=== PATIENT | female | born 1985 | race African-American/Black ===

== ENCOUNTER 2017-04-16 04:27 | Inpatient (IN) ==
[2017-04-16] MEDS ORDERED: MEPERIDINE 50 MG/1 ML VIAL IV PRN (04:38)
[2017-04-16] MEDS ORDERED: ONDANSETRON 4 MG/2 ML VIAL IV PRN (04:38)
[2017-04-16] MEDS ORDERED: ACETAMINOPHEN 325 MG TABLET PO PRN (04:38)
[2017-04-16] MEDS ORDERED: BUTORPHANOL 2 MG/ML VIAL IV PRN (04:38)
[2017-04-16] MEDS ORDERED: AMPICILLIN INJ 2,000 MG in SODIUM CHLORIDE 0.9% 100 ML IV ONE (04:39)
[2017-04-16] MEDS: LACTATED RINGERS 1,000 ML IV SCH ×2 (05:00→07:25)
[2017-04-16] MEDS: OXYTOCIN/LR 20 UNIT/1,000 ML BAG IV SCH ×2 (05:15→19:08)
[2017-04-16 05:44] LABS: Basophils % 0.2 % (0.0-0.8); Eosinophils # 0.2 10*3/uL (0.0-0.87); Eosinophils % 1.1 % (0.00-10.9); Hematocrit 38.2 VOL% (35.7-47.0); Hemoglobin 12.9 GM/DL (12.0-16.0); Immature Granulocytes % 0.7 %; Immature Granulocytes Absolute 0.12 #; Lymphocytes # 5.6 10*3/uL (1.4-4.0); Lymphocytes % 33.9 % (21.3-54.2); Mean Corpuscular HGB Conc 33.8 GM/DL (32-36); Mean Corpuscular Hemoglobin 30 PG (27-34); Mean Corpuscular Volume 88.6 FL (87-102); Mean Platelet Volume 11.8 FL (9.6-12.0); Monocytes # 1.5 10*3/uL (0.11-0.8); Monocytes % 9.1 % (1.7-12.7); Neutrophils # 9.1 10*3/uL (1.4-7.4); Platelet Count 230 T/CUMM (130-400); Red Blood Count 4.31 MC/CUMM (3.8-5.5); Red Cell Distribution Width 14.3 % (9.3-17.3); White Blood Count 16.6 T/CUMM (4-12)
[2017-04-16 06:12] LABS: Albumin 2.7 G/DL (3.4-5.0); Bilirubin,Total 0.7 MG/DL (0.2-1.0); Calcium 8.9 MG/DL (8.5-10.1); Osmolality,Calculated 276.4 MOS/KG (273-304); Potassium 3.4 MMOL/L (3.5-5.1); Total Protein 6.6 G/DL (6.4-8.3)
[2017-04-16] MEDS ORDERED: fentaNYL 2 MCG/ROPIV 0.2% EPID 150 ML EPIDURAL SCH (07:34)
[2017-04-16] MEDS ORDERED: CITRIC ACID/SODIUM CITRATE 30 ML UDCUP PO ONE (07:34)
[2017-04-16] MEDS ORDERED: LACTATED RINGERS 1,000 ML IV ONE (07:34)
[2017-04-16] MEDS ORDERED: ONDANSETRON 4 MG/2 ML VIAL IV ONE (07:34)
[2017-04-16] MEDS ORDERED: diphenhydrAMINE 50 MG/1 ML VIAL IV PRN ×2 (07:34)
[2017-04-16] MEDS ORDERED: FAMOTIDINE 20 MG/2 ML VIAL IV ONE (07:34)
[2017-04-16] MEDS ORDERED: PROMETHAZINE 25 MG/1 ML VIAL IM ONE (07:34)
[2017-04-16] MEDS ORDERED: ePHEDrine 50 MG/ML AMP IV PRN (07:34)
[2017-04-16] MEDS ORDERED: hydrOXYzine HCL 25 MG/1 ML VIAL IM PRN (07:34)
[2017-04-16 08:12] LABS: INR 0.9; PT Patient Result 9.6 SECS; Partial Thromboplastin Time 28.1 SECS (0-40)
[2017-04-16] MEDS: AMPICILLIN INJ 1,000 MG in SODIUM CHLORIDE 0.9% 100 ML IV SCH ×3 (09:23→16:58)
--- NOTE | 2017-04-16 09:32 | OB/GYN History & Physical ---
History of Present Illness Chief complaint: Here for induction of labor History of present illness: Patient is a 31-year-old [] Para 2012 that presented induction of labor at 39 weeks. She is 39 weeks gestation today. She receives care at [facility] with Jaleesa Luz CNM, [facility]. She had a total of 12 visits and 3 ultrasounds. During the course of her she has vitamin D deficiency in which she was treated with 5000 units of vitamin D daily, group beta strep positive, smoker, nausea and vomiting, obesity, bacterial vaginosis that was treated with Flagyl. Her records are current, reviewed, and up to date. 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 7 oz., patient revealed today that she had an embolus after delivery of her last baby at 39 weeks in which the embolus and the blood clots in her back were developed 3 weeks after she delivered Genetic Hx: Noncontributory Social Hx: Single, smoked earlier in the Family Hx: She had an uncle with colon cancer, cerebral palsy with the sister, diabetes, high blood pressure, renal disease Medications: vitamins, vitamin D Labs: Blood type and RH O+, antibody screen negative, Rubella nonreactive, HIV negative, HBsAG negative, GC negative, Chlamydia negative, Diabetic Screen 125, GBS positive, Other urine drug screen positive for cannabinoids Home Medications Medication Instructions Recorded Confirmed Type Multivitamin () [ 1 tablet PO DAILY 04/01/17 04/16/17 History Vitamin] Allergies Allergy/AdvReac Type Severity Reaction Status Date / Time No Known Allergies Allergy Verified 08/15/16 08:13 12 point system: reviewed and no additional remarkable complaints except as stated Medical,Surgical,& Family Hx - Medical History Psychological: No history of: Anxiety Disorders, ADHD, Behavior Problems, Bipolar Disorder, Depression, Previous Suicide Attempt, Psychiatric/Substance Abuse Tx, Schizophrenia, Violent Behavior, Psychiatric Problems Respiratory: History of: Pulmonary Embolism (2014) No history of: Asthma, Bronchitis, COPD, Intubation, Obstructive Sleep Apnea , Pulmonary Hypertension, Pneumonia, Lung Cancer, Respiratory Problems Hematology: History of: Clotting Problems (see above comment), Blood Disorders ( hx of blood clots in lung 2015) No history of: Anemia, Bleeding Problems, Sickle Cell Disease, Hematologic Cancer Reproductive: History of: Sexually Transmitted Disorders (Gonorrhea) No history of: Ectopic , Complication - Surgical History Thoracic Surgeries: Patient denies;: Organ Transplant, Lobectomy Neurologic Surgeries: Patient denies: Neurologic Surgery Abdominal Surgeries: Patient denies: Abdominal Surgery, Appendectomy Reproductive Surgeries: Surgical HX of;: Dilation and Curettage, Gynecologic Surgery Patient denies;: Breast Surgery, Section, Hysterectomy, Tubal Ligation - Family History Family History: Reports;: Family Cancer (MATERNAL SIDE), Family Diabetes ( MATERNAL SIDE), Family Heart Disease (MATERNAL SIDE), Family Hypertension ( MATERNAL SIDE) Denies;: Family Anesthesia Reaction, Family Stroke - Social History Smoking Status: Current every day smoker Frequency of Alcohol Use: None Type of Drug Use: None Marital Status: Single Lives With:: Children Functional capacity: independent ambulation 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 - Constitutional Vitals: Vital Signs Temp Pulse Resp BP 04/16/17 07:42 97.3 F L 90 18 132/65 04/16/17 04:34 97.4 F L 127 H 20 131/83 General appearance: no acute distress - Antepartum / Post Antepartum Exam Cervix - Dilatation: 2 cm Effacement: 60% Station: -2 Rupture: Artificial rupture of membranes with any clear fluid noted IUPC inserted Presentation: Vertex Heart Rate: 120s with spontaneous acceleration, no decelerations noted, category 1 FHR [place]: Every 3 minutes, 50-60 seconds, mild Breast: bilateral: normal Abdomen obstetrics: Present: bowel sounds normal Vagina: Present: normal moisture Uterus exam: Present: enlarged (Gravid, soft, estimated weight 8-8-1/2 pounds) Anus/Rectum: Present: normal perianal skin - Head Head exam: Present: normal inspection - Eye Eye exam: Present: EOMI - ENT ENT exam: Present: normal exam - Neck Neck exam: Present: normal inspection - Respiratory Respiratory exam: Present: clear to auscultation bilaterally - Breast Breasts: as per HPI - Cardiovascular Cardiovascular exam: Present: regular rate and rhythm - GI/Abdominal GI/Abdominal exam: Present: normal bowel sounds - Extremities Exam Extremities exam: Present: normal inspection, normal capillary refill, full ROM - Back Exam Back exam: Present: normal inspection - Neurological Exam Neurological exam: Present: alert, oriented X3, normal gait - Psychiatric Psychiatric exam: Present: normal affect, normal mood - Skin Skin exam: Present: normal color, warm, dry Assessment and Plan (1) History of pulmonary embolus (PE) Status: Acute Assessment and plan: Discuss plan with Dr. Nolasco-recommended start Lovenox immediately after delivery Current Visit: Yes (2) Smoker Status: Acute Current Visit: Yes (3) History of marijuana use Status: Acute Current Visit: Yes (4) Group beta Strep positive Status: Acute Assessment and plan: Start ampicillin 2 g initially then 1 g every 4 hours until delivery Current Visit: Yes (5) Term Status: Acute Current Visit: No (6) History of vitamin D deficiency Status: Acute Current Visit: Yes Results - Labs CBC & BMP: 04/16/17 05:07 04/16/17 05:07 Labs: Laboratory Results - last 72 hr 04/16/17 04/16/17 04/16/17 05:07 05:07 05:07 WBC 16.6 H RBC 4.31 Hgb 12.9 Hct 38.2 MCV 88.6 MCH 30 MCHC 33.8 RDW 14.3 Plt Count 230 MPV 11.8 Neut % (Auto) 55.0 Lymph % (Auto) 33.9 [place] % (Auto) 9.1 Eos % (Auto) 1.1 Baso % (Auto) 0.2 Neut # (Auto) 9.1 H Lymph # (Auto) 5.6 H [place] # (Auto) 1.5 H Eos # (Auto) 0.2 Baso # (Auto) 0.0 Immature Gran % 0.7 Nucleated RBC % 0.0 Immature Gran # 0.12 Nucleated RBCs # 0.00 INR PT Patient/Control Mix Fibrinogen Circ Anticoag PTT Sodium 140 Potassium 3.4 L Chloride 105 Carbon Dioxide 23 Anion Gap 15.4 H BUN 6 L Creatinine 0.50 L GFR Calculation 206 BUN/Creatinine Ratio 12.00 Glucose 106 Calculated Osmolality 276.4 Uric Acid Calcium 8.9 Total Bilirubin 0.70 AST 9 ALT 13 Alkaline Phosphatase 159 H Total Protein 6.6 Albumin 2.7 L Globulin 3.9 H Albumin/Globulin Ratio 0.6 L Blood Type O POSITIVE Antibody Screen Negative 04/16/17 04/16/17 05:07 07:30 WBC RBC Hgb Hct MCV MCH MCHC RDW Plt Count MPV Neut % (Auto) Lymph % (Auto) [place] % (Auto) Eos % (Auto) Baso % (Auto) Neut # (Auto) Lymph # (Auto) [place] # (Auto) Eos # (Auto) Baso # (Auto) Immature Gran % Nucleated RBC % Immature Gran # Nucleated RBCs # INR 0.9 PT Patient/Control Mix 9.6 Fibrinogen 341 Circ Anticoag PTT 28.1 Sodium Potassium Chloride Carbon Dioxide Anion Gap BUN Creatinine GFR Calculation BUN/Creatinine Ratio Glucose Calculated Osmolality Uric Acid 2.9 Calcium Total Bilirubin AST ALT Alkaline Phosphatase Total Protein Albumin Globulin Albumin/Globulin Ratio Blood Type Antibody Screen
[2017-04-16] MEDS ORDERED: BUPIVACAINE 0.25% 50 ML VIAL ONE (11:26)
--- NOTE | 2017-04-16 13:43 | OB/GYN Progress Note ---
Assessment and Plan (1) History of pulmonary embolus (PE) Status: Acute Assessment and plan: Discuss plan with Dr. 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 Denies any other problems presently. O: FHTs @ 120s with spontaneous variability, no decelerations noted UCs every 2-3 min/ 50 sec/50-70 mmHg with resting tone @ 10 mmHg SVE 4 cm/80%/0 station Pitocin @ 16 mu/min A: IUP @ 39.0 wks, pitocin induction of labor, category I FHR tracing, H/O postpatum pulmonary embolis P: Continue with pitocin induction Reposition for comfort Questions answered to desired level of satisfaction Start Lovenox post delivery per Dr. 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
[2017-04-16 14:20] LABS: Apearance,Urine CLEAR (Clear); Bacteria,Urine Occasional /HPF (Few); Bilirubin,Urine Negative (Negative); Blood, Urine Negative (Negative); Glucose,Urine (UA) Negative (Negative); Ketones,Urine Negative (Negative); Mucus,Urine Few /LPF (Occasional); Nitrite,Urine Negative (Negative); Protein,Urine 30 MG/DL; RBC,Urine 3 /HPF (0-4); Squamous Epithelial Cell,Urine Occasional /HPF (0-10); Urine Color Yellow (Yellow); Urine Specific Gravity 1.032 (1.001-1.035); Urine Urobilinogen < 2.0 EU/DL (0.2-1.0); WBC,Urine 2 /HPF (0-6)
[2017-04-16] MEDS: ENOXAPARIN 30 MG/0.3 ML SYRINGE SUBCUT SCH (18:03)
--- NOTE | 2017-04-16 18:09 | Operative Note ---
Date of procedure: 04/16/17 Pre-op diagnosis: IUP at 39 weeks, induction of labor, history of pulmonary embolus Post-op diagnosis: other () Procedure: Patient received lithotomy position, completely dilated and +2-+3 station. Patient was draped and prepped. At 1744, head delivered in DEREK position, nuchal cord 1 noted and easily slipped over baby's head. Anterior then posterior shoulders were delivered easily without difficulty. delivered in usual fashion and secured. Mouth and nose bulb suctioned. Cord double clamped and cut by female significant other at the bedside. Mouth and nose bulb suctioned, dried with good tone and vigorous cry noted. taken to radiant warmer and attended by nursery RN. At 1753, spontaneous delivery of placenta via Diana position, with 3 vessel cord noted, normal cord insertion, with moderate calcifications. Hemostasis maintained with fundal massage and Pitocin 20 units in 1000 cc of lactated Ringer's. Perineum inspected with no lacerations noted, intact. Male with Apgars 8 and 9 weighing 8 pounds and 5 ounces at 3775 grams. Mother and baby stable. Mother desires to bottle feed. Anesthesia: epidural Surgeon / Physician: Jaleesa Luz Estimated blood loss: minimal (100 cc) Specimens: other (Placenta to pathology secondary to history of smoking) Condition: stable Disposition: floor Results - Labs CBC & BMP: 04/16/17 05:07 04/16/17 05:07 Discharge Plan - Discharge Medications No Action Multivitamin () [ Vitamin] 1 tablet PO DAILY - Follow Up or Referral - Forms/Instructions
[2017-04-16] MEDS ORDERED: BISACODYL 10 MG SUPP RECTAL PRN (18:11)
[2017-04-16] MEDS ORDERED: DIPH/TET/ACEL PERT BOOSTER VACCINE 0.5 ML VIAL IM ONE (18:11)
[2017-04-16] MEDS ORDERED: BENZOCAINE 20%/MENTHOL 0.5% SPRAY 56 GM CAN TOP PRN (18:11)
[2017-04-16] MEDS ORDERED: HYDROCORTISONE 2.5% RECTAL CREAM 30 GM TUBE TOP PRN (18:11)
[2017-04-16] MEDS ORDERED: oxyCODONE/ACETAMINOPHEN 5-325 MG TABLET PO PRN (18:11)
[2017-04-16] MEDS ORDERED: MEASLES/MUMPS/RUBELLA VACCINE 0.5 ML VIAL SUBCUT ONE (18:11)
[2017-04-16] MEDS ORDERED: WITCH HAZEL PADS 100/JAR TOP PRN (18:11)
[2017-04-16] MEDS ORDERED: LANOLIN 50% CREAM 0.3 OZ TUBE TOP PRN (18:11)
[2017-04-16] MEDS ORDERED: RHO(D) IMMUNE GLOBULIN 300 MCG SYRINGE IM ONE (20:00)
[2017-04-16] MEDS: DOCUSATE SODIUM 100 MG CAPSULE PO SCH (21:29)
[2017-04-16] MEDS: FERROUS SULFATE 325 MG TABLET PO SCH (21:29)
[2017-04-16] MEDS: oxyCODONE/ACETAMINOPHEN 5-325 MG TABLET PO PRN (21:45)
[2017-04-17] MEDS: IBUPROFEN 800 MG TABLET PO PRN (05:33)
[2017-04-17] MEDS: ENOXAPARIN 30 MG/0.3 ML SYRINGE SUBCUT SCH ×2 (06:20→18:00)
[2017-04-17 06:23] LABS: Basophils % 0.2 % (0.0-0.8); Eosinophils # 0.2 10*3/uL (0.0-0.87); Eosinophils % 1.1 % (0.00-10.9); Hematocrit 32.8 VOL% (35.7-47.0); Hemoglobin 11.2 GM/DL (12.0-16.0); Immature Granulocytes % 0.6 %; Immature Granulocytes Absolute 0.09 #; Lymphocytes # 4.3 10*3/uL (1.4-4.0); Lymphocytes % 30.2 % (21.3-54.2); Mean Corpuscular HGB Conc 34.1 GM/DL (32-36); Mean Corpuscular Hemoglobin 30 PG (27-34); Mean Corpuscular Volume 87.9 FL (87-102); Mean Platelet Volume 11.7 FL (9.6-12.0); Monocytes # 1.8 10*3/uL (0.11-0.8); Monocytes % 12.2 % (1.7-12.7); Neutrophils % 55.7 % (38.7-73.9); Platelet Count 194 T/CUMM (130-400); Red Blood Count 3.73 MC/CUMM (3.8-5.5); Red Cell Distribution Width 14.3 % (9.3-17.3); White Blood Count 14.4 T/CUMM (4-12)
[2017-04-17] MEDS: FERROUS SULFATE 325 MG TABLET PO SCH ×3 (08:41→22:04)
[2017-04-17] MEDS: oxyCODONE/ACETAMINOPHEN 5-325 MG TABLET PO PRN (08:42)
[2017-04-17] MEDS: DOCUSATE SODIUM 100 MG CAPSULE PO SCH ×2 (08:43→22:04)
--- NOTE | 2017-04-17 09:03 | Discharge Summary ---
Hospital Course - Hospital Course Hospital Course: Patient is a 31-year-old now 4 para 3013 that presented for induction of labor at 39 weeks gestation. Labor progressed under an epidural anesthetic utilizing Pitocin induction to deliver an 8 lbs. 5 oz. male with Apgars 8 and 9. Perineum was intact. Secondary to a history of pulmonary embolus and blood clots 3 weeks after her last baby, she was started on Lovenox twice daily. She is being discharged home tomorrow if stable. Patient was instructed to continue Lovenox twice daily for 6 weeks . She is to follow-up with me in 2 weeks. Questions were answered to her desired level satisfaction and Dr. Nolasco agrees with plan of care. Diagnosis - Discharge Diagnosis (1) History of pulmonary embolus (PE) Status: Acute (2) Smoker Status: Acute (3) History of marijuana use Status: Acute (4) Group beta Strep positive Status: Resolved (5) Term Status: Resolved (6) History of vitamin D deficiency Status: Acute (7) (normal spontaneous vaginal delivery) Status: Acute Discharge Plan - Discharge Data Disposition: Disch To Home/Self Care Condition at Discharge: Stable Discharge Diet: advance to your usual diet Activity: resume usual activities as tolerated Hygiene: may shower Weight Bearing at Discharge: full weight bearing Driving: not for (2 week) Contact your physician if you experience:: fever over 101, Difficulty voiding, Redness or swelling, Nausea/Vomiting, Shortness of breath, Bleeding, pain uncontrolled by pain medications - Discharge Medications New Ferrous Sulfate Tab [Feosol Original Tab] 325 mg PO DAILY #30 tablet Ibuprofen Tab [Motrin Tab] 800 mg PO Q8H PRN #90 tablet PRN Reason: Pain Moderate (4-7) Enoxaparin [Lovenox] 30 mg SUBCUT Q24H #30 syringe No Action Multivitamin () [ Vitamin] 1 tablet PO DAILY - Follow Up or Referral Follow Up: Jaleesa Luz CFNP [Advanced Practice Nurse] - 2 Weeks - Forms/Instructions Exam - Constitutional Vitals: Period Temp Pulse Resp BP Sys/Gonzalez Pulse Ox Last 24 Hr 97.0 F-98.4 F 76-105 18-20 106-142/53-78 97-100 General appearance: no acute distress - Head Head exam: Present: normal inspection - Eye Pupils: Present: normal accommodation - ENT ENT exam: Present: normal exam - Neck Neck exam: Present: normal inspection - Respiratory Respiratory exam: Present: clear to auscultation bilaterally - Cardiovascular Cardiovascular exam: Present: regular rate and rhythm - GI/Abdominal GI/Abdominal exam: Present: normal bowel sounds, other (Uterus firm, midline, 2 fingerbreadths below the umbilicus. Scant rubra noted on pad) - Extremities Exam Extremities exam: Present: normal inspection, normal capillary refill, full ROM - Back Exam Back exam: Present: normal inspection - Neurological Exam Neurological exam: Present: alert, oriented X3, normal gait - Psychiatric Psychiatric exam: Present: normal affect, normal mood - Skin Skin exam: Present: normal color, warm, dry Discharge Results Procedures and tests throughout hospitalization: Laboratory Results - last 72 hr 04/16/17 04/16/17 04/16/17 05:07 05:07 05:07 WBC 16.6 H RBC 4.31 Hgb 12.9 Hct 38.2 MCV 88.6 MCH 30 MCHC 33.8 RDW 14.3 Plt Count 230 MPV 11.8 Neut % (Auto) 55.0 Lymph % (Auto) 33.9 [place] % (Auto) 9.1 Eos % (Auto) 1.1 Baso % (Auto) 0.2 Neut # (Auto) 9.1 H Lymph # (Auto) 5.6 H [place] # (Auto) 1.5 H Eos # (Auto) 0.2 Baso # (Auto) 0.0 Immature Gran % 0.7 Nucleated RBC % 0.0 Immature Gran # 0.12 Nucleated RBCs # 0.00 Immature Plt Fraction INR PT Patient/Control Mix Fibrinogen Circ Anticoag PTT Sodium 140 Potassium 3.4 L Chloride 105 Carbon Dioxide 23 Anion Gap 15.4 H BUN 6 L Creatinine 0.50 L GFR Calculation 206 BUN/Creatinine Ratio 12.00 Glucose 106 Calculated Osmolality 276.4 Uric Acid Calcium 8.9 Total Bilirubin 0.70 AST 9 ALT 13 Alkaline Phosphatase 159 H Total Protein 6.6 Albumin 2.7 L Globulin 3.9 H Albumin/Globulin Ratio 0.6 L Urine Color Urine Appearance Urine pH Ur Specific [place] Urine Protein Urine Glucose (UA) Urine Ketones Urine Blood Urine Nitrate Urine Bilirubin Urine Urobilinogen Urine Leukocytes Urine RBC Urine WBC Ur Squamous Epith Cells Urine Bacteria Urine Mucus Ur Culture Indicated? Blood Type O POSITIVE Antibody Screen Negative 04/16/17 04/16/17 04/16/17 05:07 07:30 12:25 WBC RBC Hgb Hct MCV MCH MCHC RDW Plt Count MPV Neut % (Auto) Lymph % (Auto) [place] % (Auto) Eos % (Auto) Baso % (Auto) Neut # (Auto) Lymph # (Auto) [place] # (Auto) Eos # (Auto) Baso # (Auto) Immature Gran % Nucleated RBC % Immature Gran # Nucleated RBCs # Immature Plt Fraction INR 0.9 PT Patient/Control Mix 9.6 Fibrinogen 341 Circ Anticoag PTT 28.1 Sodium Potassium Chloride Carbon Dioxide Anion Gap BUN Creatinine GFR Calculation BUN/Creatinine Ratio Glucose Calculated Osmolality Uric Acid 2.9 Calcium Total Bilirubin AST ALT Alkaline Phosphatase Total Protein Albumin Globulin Albumin/Globulin Ratio Urine Color Yellow Urine Appearance Clear Urine pH 5.0 Ur Specific [place] 1.032 Urine Protein 30 Urine Glucose (UA) Negative Urine Ketones Negative Urine Blood Negative Urine Nitrate Negative Urine Bilirubin Negative Urine Urobilinogen < 2.0 H Urine Leukocytes Negative Urine RBC 3 Urine WBC 2 Ur Squamous Epith Cells Occasional Urine Bacteria Occasional Urine Mucus Few Ur Culture Indicated? Not indicated Blood Type Antibody Screen 04/17/17 06:02 WBC 14.4 H RBC 3.73 L Hgb 11.2 L Hct 32.8 L MCV 87.9 MCH 30 MCHC 34.1 RDW 14.3 Plt Count 194 MPV 11.7 Neut % (Auto) 55.7 Lymph % (Auto) 30.2 [place] % (Auto) 12.2 Eos % (Auto) 1.1 Baso % (Auto) 0.2 Neut # (Auto) 8.0 H Lymph # (Auto) 4.3 H [place] # (Auto) 1.8 H Eos # (Auto) 0.2 Baso # (Auto) 0.0 Immature Gran % 0.6 Nucleated RBC % 0.0 Immature Gran # 0.09 Nucleated RBCs # 0.00 Immature Plt Fraction 0.0 INR PT Patient/Control Mix Fibrinogen Circ Anticoag PTT Sodium Potassium Chloride Carbon Dioxide Anion Gap BUN Creatinine GFR Calculation BUN/Creatinine Ratio Glucose Calculated Osmolality Uric Acid Calcium Total Bilirubin AST ALT Alkaline Phosphatase Total Protein Albumin Globulin Albumin/Globulin Ratio Urine Color Urine Appearance Urine pH Ur Specific [place] Urine Protein Urine Glucose (UA) Urine Ketones Urine Blood Urine Nitrate Urine Bilirubin Urine Urobilinogen Urine Leukocytes Urine RBC Urine WBC Ur Squamous Epith Cells Urine Bacteria Urine Mucus Ur Culture Indicated? Blood Type Antibody Screen Labs on day of discharge: Labs from last 24 hours 04/17/17 04/16/17 06:02 12:25 WBC 14.4 H RBC 3.73 L Hgb 11.2 L Hct 32.8 L MCV 87.9 MCH 30 MCHC 34.1 RDW 14.3 Plt Count 194 MPV 11.7 Neut % (Auto) 55.7 Lymph % (Auto) 30.2 [place] % (Auto) 12.2 Eos % (Auto) 1.1 Baso % (Auto) 0.2 Neut # (Auto) 8.0 H Lymph # (Auto) 4.3 H [place] # (Auto) 1.8 H Eos # (Auto) 0.2 Baso # (Auto) 0.0 Immature Gran % 0.6 Nucleated RBC % 0.0 Immature Gran # 0.09 Nucleated RBCs # 0.00 Immature Plt Fraction 0.0 Urine Color Yellow Urine Appearance Clear Urine pH 5.0 Ur Specific [place] 1.032 Urine Protein 30 Urine Glucose (UA) Negative Urine Ketones Negative Urine Blood Negative Urine Nitrate Negative Urine Bilirubin Negative Urine Urobilinogen < 2.0 H Urine Leukocytes Negative Urine RBC 3 Urine WBC 2 Ur Squamous Epith Cells Occasional Urine Bacteria Occasional Urine Mucus Few Ur Culture Indicated? Not indicated DS: Provider Date of admission: 04/16/17 04:38 Primary care physician: . No PCP Attending physician on admission: Dalton Nolasco DO Consults: 04/16/17 04:38 Consult to Anesthesiology [CONS] Routine Consulting Provider: Reason for Anesthesiology: Epidural Consult Comment: Epidural for pain managment 04/16/17 18:11 Consult to Air Gun Operator [CONS] Routine Consult Air Gun Operator: Breast Feeding Discharging clinician: GABI Rocha
--- NOTE | 2017-04-17 10:13 | Anesthesia Post-Op ---
Anesthesia Post OP - Post Ansesthetic Evaluation Patient seen in post op: Yes Resp: within normal limits CV: within normal limits Mental: within normal limits Temp: within normal limits [id number]: within normal limits Nausea and Vomiting: within normal limits Pain: within normal limits
[2017-04-17] MEDS ORDERED: ENOXAPARIN 30 MG/0.3 ML SYRINGE SUBCUT SCH (12:12)
[2017-04-18] MEDS: ENOXAPARIN 30 MG/0.3 ML SYRINGE SUBCUT SCH (06:19)
[2017-04-18] MEDS: FERROUS SULFATE 325 MG TABLET PO SCH (08:09)
[2017-04-18] MEDS: DOCUSATE SODIUM 100 MG CAPSULE PO SCH (08:09)
[2017-04-18] MEDS: IBUPROFEN 800 MG TABLET PO PRN (08:20)
[2017-04-18] MEDS: oxyCODONE/ACETAMINOPHEN 5-325 MG TABLET PO PRN (08:20)
[2017-04-18 08:37] VITALS: BP 148/97
--- NOTE | 2017-04-20 11:19 | Pathology Report from [facility] ---
[facility] ACCESSION # : [id number] PATIENT NAME : Rc Oreilly ORDERING DR : TALIA SAINI DO CLINICAL HX: IUP @ 39 wks gestation, HX of PE POST-OP DX: Same SPECIMEN INFO: Placenta GROSS DESCRIPTION: Received fresh labeled RC OREILLY & PLACENTA is a 537 gm placenta measuring 18.1 x 17.2 x 2.8 cm. The membranes are pink hernandez and translucent. The umbilical cord is centrally inserted, contains three vessels and measures 41.2 cm. The surface is circumarginate blue stevenson hernandez with marked areas of subchorionic fibrin present and is markedly vascular. The maternal surface is red stevenson with multiple areas of scattered calcification present. No gross abnormalities on section. Sections submitted A- membranes and cord, B- and maternal surfaces, C-Additional fibrotic surface. DIAGNOSIS FOR RC OREILLY: PLACENTA: Trivascular umbilical cord. Unremarkable membranes. Third trimester placenta with dystrophic calcification, subchorionic fibrin deposition and focal intraparenchymal hemorrhage. COLLECTED DATE: 04/17/2017 [facility] REPORT DATE: 04/20/2017 ELECTRONICALLY SIGNED BY: Renee Lujan III, M.D. 04/20/2017 - 10:07:37 ZACHARY
== END 2017-04-18 11:50 | disposition home or self-care (01) | DRG 560 ==
LOC: N.LDOUT 04:27 → N.LD 04:29 → N.OB 19:15
PROVIDERS: ADMIT Obstetrics & Gynecology; ATTEND Obstetrics & Gynecology